=== PATIENT | male | born 1965 | race Caucasian/White ===

== ENCOUNTER 2024-06-08 13:52 | Emergency (ER) | payer MEDICAID, OTHER ==
[~2024-06-08] VITALS: Ht 182.9 cm; Wt 64.4 kg
[~2024-06-08 13:52] MED LIST: CITA10TA17
[2024-06-08] MEDS ORDERED: KETOROLAC TROMETHAMINE INJ 30 MG/ML VIAL ONE (14:32)
[2024-06-08] MEDS ORDERED: oxyCODONE/APAP (5/325 MG) 1 UDTAB TABLET ONE ×3 (14:32→19:25)
[2024-06-08] MEDS: oxyCODONE/APAP (5/325 MG) 1 UDTAB TABLET PO ONE ×3 (14:41→19:27)
[2024-06-08] MEDS: KETOROLAC TROMETHAMINE INJ 30 MG/ML VIAL IM ONE (14:41)
[2024-06-08] MEDS ORDERED: LIDOCAINE 0.5% HCL 50 ML VIAL ONE (17:08)
[2024-06-08] MEDS ORDERED: IBUP-1490 PO (19:06)
[2024-06-08] MEDS ORDERED: OXYC-128 PO (19:06)
[2024-06-08 19:29] VITALS: BP 157/85; TEMP 98.4; O2SAT 99
== END 2024-06-08 19:30 | disposition home or self-care (01) ==
LOC: ER 14:05
DX: S42.291A Other displaced fracture of upper end of right humerus, initial encounter for closed fracture (principal); J45.909 Unspecified asthma, uncomplicated; M25.511 Pain in right shoulder; M25.531 Pain in right wrist; M25.532 Pain in left wrist; Z86.59 Personal history of other mental and behavioral disorders; W11.XXXA Fall on and from ladder, initial encounter; Y93.89 Activity, other specified; Y92.89 Other specified places as the place of occurrence of the external cause; Y99.8 Other external cause status
CPT/HCPCS: 12001; 73030; 73060; 73080; 73110; 96372; 99284; A6403; J1885; J3490